=== PATIENT | female | born 1960 | race Asian ===

== ENCOUNTER 2021-12-24 07:55 | Day surgery (SDC) | payer MEDICAID ==
[~2021-12-24] VITALS: Ht 149.9 cm; Wt 64.5 kg
[2021-12-24 08:00] VITALS: BP 150/91
[2021-12-24] MEDS ORDERED: LOSA1TAB36 PO (08:07)
[2021-12-24] MEDS ORDERED: BACL-11 PO (08:07)
[2021-12-24] MEDS ORDERED: NABU-139 PO (08:07)
[2021-12-24] MEDS ORDERED: TRAM50TA2 PO (08:07)
[2021-12-24] MEDS ORDERED: MIDAZolam 1 MG/ML 5ML VIAL ONE (08:11)
[2021-12-24] MEDS ORDERED: fentaNYL/PF 50MCG/1 ML 2ML syringe ONE (08:11)
[2021-12-24 09:40] VITALS: BP 124/79
[2021-12-24 09:50] VITALS: BP 127/76
[2021-12-24 10:00] VITALS: BP 128/78
== END 2021-12-24 10:20 | disposition home or self-care (01) ==
LOC: GI LAB 07:55
PROVIDERS: ATTEND Internal Medicine Gastroenterology
DX: Z12.11 Encounter for screening for malignant neoplasm of colon (principal); K63.5 Polyp of colon; K64.8 Other hemorrhoids
CPT/HCPCS: 45380; 99152; J2250; J3010; J7040; Z7512; 99153; A4620